=== PATIENT | male | born 1985 | race Caucasian/White ===

== ENCOUNTER 2020-04-16 09:04 | Outpatient (CLI) | payer BC, SELFPAY ==
--- NOTE | 2020-05-18 22:01 | WPDHOMESLEEP ---
Sleep Study - Home Unattended Date of Study: 04/16/20 Ordering Provider: Zion Mantilla MD Interpreting Physician: Blaire Allen MD Home Sleep Study Type: Watch PAT Height: 1.75 m Weight: 127.006 kg Body Mass Index: 41.3 [place]: 10 Reason for Sleep Study loud snoring with episodes of witnessed apnea Sleep History Roberto Carlos King is a 35 year old man who constantly snores and it is constantly loud enough that others complain about it. There is a family history of sleep issues with his father having similar problems. He does not awaken at night with heartburn, belching or coughing. He does not awaken from sleep feeling short of breath. He rarely has trouble sleeping with a cold and rarely wakes up gasping for breath at night. He constantly has breathing problems at night reported to him by others. He occasionally sweats excessively at night. He rarely notices his heart pounding or beating irregularly at night. He frequently falls asleep during the day, occasionally involuntarily. He rarely falls asleep while driving. He does not fall asleep while exerting physical effort. He does not have loss of muscle tone with strong emotion. 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 He does not feel paralyzed on waking or falling asleep. He occasionally has vivid dreamlike scenes upon awakening or falling asleep. He does not feel afraid to go to sleep. He does not have nightmares. He occasionally remembers his dreams. He does not have racing thoughts and does not have feelings of sadness or depression. He rarely has anxiety. He rarely feels muscular tension. He rarely notices parts of his body jerking. He does not kick at night, does not have crawling or aching feelings in his legs, does not have any kind of leg pain during the night. He does not have morning jaw pain. He denies grinding his teeth at night. He does not bothered by pain during the day and is not awakened by pain during the night. He occasionally wakes up feeling stiff in the morning, frequently with sore achy muscles and frequently with pain in the neck and spine. He has fatigue. he reports a 20 lb weight gain in the last year. He reports a 1 inch increase in his collar size in the last year. Normal bedtime is Between 11 and 12 midnight taking 10-15 minutes to fall asleep, waking once at most during the night. Some nights he does not wake at all. When he wakes he goes to urinate. He stays awake on average 5 minutes. He wakes in the morning at 8:00 a.m.. He normally gets between 7 and 8 hours of sleep at night. On the weekends he stays awake until midnight or 1:00 a.m. and wakes between 9 and 10:00 a.m.. He does not generally take naps. He may feel refreshed after a short 10 or 15 minutes nap. He is usually drowsy in the morning for 1 hour or longer. He feels better in the afternoon compared to other times of day. Habits: He quit tobacco per months ago. Caffeine 2 cups per day. No alcohol. [facility] Past Medical History Medical History Seasonal allergies Family History Family History Father Hypertension Grandparent Family history of type 2 diabetes mellitus Social History Social History Smoking status: Never smoker Alcohol intake: current Substance use: never Gender identity (if verbalized by the patient): Male Sleep Procedure The sleep study was completed using AsyscoT a technically adequate device with seven channels: peripheral arterial tone, actigraphy, body position, snore, respiratory movement, pulse oximetry, sleep staging, and heart rate. Prior to using the device, the patient received verbal and written instructions for its application and was provided with the help desk phone number for additional telephonic instruction wi
[2020-05-18 22:24] VITALS: BMI 41.3
== END 2020-04-16 09:05 | disposition home or self-care (01) ==
LOC: ANHCSM 09:06
PROVIDERS: PCP Family Medicine; Visit Provider Family Medicine
DX: G47.00 Insomnia, unspecified (principal); G47.33 Obstructive sleep apnea (adult) (pediatric); E66.9 Obesity, unspecified; Z68.41 Body mass index [BMI] 40.0-44.9, adult
CPT/HCPCS: 95800

== ENCOUNTER → 2020-07-02 00:27 | Outpatient (CLI) | payer BC, SELFPAY ==
[2020-07-02 19:29] LABS: SARS-CoV-2 RNA PCR Negative
== END ==
PROVIDERS: PCP Family Medicine; Visit Provider Internal Medicine Critical Care Medicine
DX: Z20.822 Contact with and (suspected) exposure to COVID-19 (principal)
CPT/HCPCS: C9803; U0003; U0005

== ENCOUNTER 2020-07-05 08:57 | Outpatient (CLI) | payer BC, SELFPAY ==
--- NOTE | 2020-07-20 17:45 | WPDSLEEPSTUD ---
Sleep Study Date of Study: 07/05/20 Ordering Provider: Zion Mantilla MD Interpreting Physician: Blaire Allen MD Sleep Study Type: CPAP Titration Height: 1.75 m Weight: 120.202 kg Body Mass Index: 39.1 Neck Circumference (inches): 18 [place]: 11 Reason for Sleep Study Home Sleep Test April 16 with moderate obstructive sleep apnea, AHI 24.1, minimum 74%, loud snoring worse in the prone position. No supine sleep. Central AHI 17. Patient now presents for CPAP titration. Sleep History Roberto Carlos King is a 35 year old man who constantly snores and it is constantly loud enough that others complain about it. There is a family history of sleep issues with his father having similar problems. He does not awaken at night with heartburn, belching or coughing. He does not awaken from sleep feeling short of breath. He rarely has trouble sleeping with a cold and rarely wakes up gasping for breath at night. He constantly has breathing problems at night reported to him by others. He occasionally sweats excessively at night. He rarely notices his heart pounding or beating irregularly at night. He frequently falls asleep during the day, occasionally involuntarily. He rarely falls asleep while driving. He does not fall asleep while exerting physical effort. He does not have loss of muscle tone with strong emotion. 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 He does not feel paralyzed on waking or falling asleep. He occasionally has vivid dreamlike scenes upon awakening or falling asleep. He does not feel afraid to go to sleep. He does not have nightmares. He occasionally remembers his dreams. He does not have racing thoughts and does not have feelings of sadness or depression. He rarely has anxiety. He rarely feels muscular tension. He rarely notices parts of his body jerking. He does not kick at night, does not have crawling or aching feelings in his legs, does not have any kind of leg pain during the night. He does not have morning jaw pain. He denies grinding his teeth at night. He does not bothered by pain during the day and is not awakened by pain during the night. He occasionally wakes up feeling stiff in the morning, frequently with sore achy muscles and frequently with pain in the neck and spine. He has fatigue. he reports a 20 lb weight gain in the last year. He reports a 1 inch increase in his collar size in the last year. Normal bedtime is Between 11 and 12 midnight taking 10-15 minutes to fall asleep, waking once at most during the night. Some nights he does not wake at all. When he wakes he goes to urinate. He stays awake on average 5 minutes. He wakes in the morning at 8:00 a.m.. He normally gets between 7 and 8 hours of sleep at night. On the weekends he stays awake until midnight or 1:00 a.m. and wakes between 9 and 10:00 a.m.. He does not generally take naps. He may feel refreshed after a short 10 or 15 minutes nap. He is usually drowsy in the morning for 1 hour or longer. He feels better in the afternoon compared to other times of day. Habits: He quit tobacco per months ago. Caffeine 2 cups per day. No alcohol. [facility] Past Medical History Medical History Seasonal allergies Family History Family History Father Hypertension Grandparent Family history of type 2 diabetes mellitus Social History Social History Smoking status: Never smoker Alcohol intake: current Substance use: never Gender identity (if verbalized by the patient): Male Medications Medications: none listed Sleep Procedure This test was performed using the viVood multiple channel system including EOG, EEG, submental EMG, EKG, nasal and oral airflow using thermistors and nasal pressure sensors, chest and a
[2020-07-23 08:43] VITALS: BMI 39.1
== END 2020-07-05 08:58 | disposition home or self-care (01) ==
LOC: ANHCSM 08:58
PROVIDERS: PCP Family Medicine; Visit Provider Family Medicine
DX: G47.31 Primary central sleep apnea (principal)
CPT/HCPCS: 95811

== ENCOUNTER 2020-08-13 07:35 | Outpatient (CLI) | payer BC, SELFPAY ==
--- NOTE | 2020-08-13 08:10 | ECHO_ITS ---
Patient Info Name: Roberto Carlos King Age: 35 years : 1985 Gender: Male Ht: 69 in Wt: 265 lbs BSA: 2.47 m2 HR: 62 bpm BP: 144 / 106 mmHg Technical Quality: Good Exam Date: 08/13/2020 8:18 AM Exam Location: [facility] Pulmonary Patient Status: Outpatient Admit Date: 08/13/2020 Staff Ordering Physician: Annabelle Dai NP Counter Stitcher: Wild Castro RDCS, RT Attending Provider: Annabelle Dai NP Referring Physician: Malaika TIERNEY; Exam Type: CA echo doppler color flow Study Info Indications Z13.6 - Encounter for screening for cardiovascular disorders Complete two-dimensional, color flow and Doppler transthoracic echocardiogram is performed. Strain analysis performed. Summary 1. Complete two-dimensional, color flow and Doppler transthoracic echocardiogram is performed. 2. Left ventricular chamber dimension is normal. 3. Left ventricular systolic function is normal, estimated at 60-65%. 4. The left ventricular diastolic function is normal. 5. E/e' 7 is not elevated. 6. Global longitudinal strain is normal at -18.1%. 7. There is trace pulmonic regurgitation. Left Ventricle E/e' 7 is not elevated. Global longitudinal strain is normal at -18.1%. Left ventricular chamber dimension is normal. Left ventricular systolic function is normal, estimated at 60-65%. The left ventricular diastolic function is normal. Right Ventricle Right ventricular systolic function is normal and with normal TAPSE 2.4 cm. Right ventricular chamber dimension is normal. Left Atria Left atrial chamber dimension is normal. Right Atria Right atrial chamber dimension is normal. Aortic Valve The aortic valve is trileaflet. There is no aortic valve stenosis. There is no aortic valve regurgitation. Pulmonic Valve There is trace pulmonic regurgitation. Mitral Valve There is no mitral valve stenosis. There is no mitral valve regurgitation. Tricuspid Valve There is no tricuspid valve regurgitation. Pericardium/Pleural There is no pericardial effusion. Inferior Vena Cava Normal inferior vena cava with >50% collapse upon inspiration consistent with normal right atrial pressure, 5 mmHg. Aorta The aortic root size at the sinus of Valsalva is normal. Left Ventricular Outflow Tract Name Value Normal LVOT 2D LVOT Diameter 2.1 cm LVOT Doppler LVOT Peak Gradient 5 mmHg LVOT Mean Gradient 3 mmHg LVOT VTI 23 cm LVOT VTI/AV VTI Ratio 0.9 LVOT Stroke Volume 82 ml LVOT CO 4.8 l/min LVOT CI 2.0 l/min/m2 Mitral Valve Name Value Normal MV Doppler MV Decel [place] 321 cm/s2 MV PHT
== END 2020-08-13 07:36 | disposition home or self-care (01) ==
PROVIDERS: PCP Family Medicine; Visit Provider Nurse Practitioner Family
DX: G47.33 Obstructive sleep apnea (adult) (pediatric) (principal); G47.31 Primary central sleep apnea
CPT/HCPCS: 93306

== ENCOUNTER 2023-10-29 21:59 | Emergency (ER) | payer BC, SELFPAY ==
[2023-10-29 22:58] VITALS: BP 141/80; PULSE 82; RESP 20; TEMP 36.6; O2SAT 99
[2023-10-30 02:40] VITALS: PULSE 69; RESP 18; TEMP 36.7; O2SAT 97
--- NOTE | 2023-10-30 03:52 | ED.GENADULT ---
HPI - General Adult General Chief complaint: Animal Bite Stated complaint: dog bite Time Seen by Provider: 10/30/23 03:03 History of Present Illness HPI narrative: Patient is a 38-year-old gentleman who presents emergency department with chief complaint of dog bite to the right upper extremity. 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 Nursing and ancillary documentation was reviewed. [facility] Past Medical History Medical History Dizziness of unknown cause Seasonal allergies Snoring Snoring Family History Family History Father Hypertension Grandparent Family history of type 2 diabetes mellitus Mother Skin cancer Social History Social History Smoking status: Former smoker Alcohol intake: current Drinks per week: 3 Alcohol use details: beer Substance use: never Do You Feel Safe in your Home?: Yes Lack of Transportation: No Lack of Food: Never True Current Housing: I Have Housing Concerned About Future Housing: No Difficulty Paying Gas/Electric Bills: No Difficulty Paying for Meds: No Currently Unemployed: No Education: Bachelor's Degree Difficulty w/ Childcare or Family Care: No Living arrangements: with family Occupation/Education: occupation Gender identity (if verbalized by the patient): Male Sexual Orientation (if Verbalized by the Patient): Straight or Heterosexual Spiritual care concerns: No Agree to blood products: Yes Exam Narrative: GENERAL: Well-appearing, well-nourished, and in no acute distress. HEAD: Normocephalic, atraumatic. EYES: PERRLA and EOMI. ENT: Nares clear, no rhinorrhea or epistaxis. Mucous membranes moist. NECK: Supple. CHEST: Clear to auscultation. No respiratory distress. HEART: Regular rate and rhythm. No murmur heard. Normal peripheral pulses. ABDOMEN: Soft, nontender, nondistended, normal active bowel sounds. EXTREMITIES: Normal range of motion. No edema. SKIN: Warm, dry, no rash. Several small puncture wounds present to the right forearm full range of motion no crepitance no large tissue defect NEURO: No focal deficits. Alert and oriented x3. PSYCH: Normal mood and affect. Course Vital Signs Vital signs: Vital Signs Temperature 36.6 C 10/29/23 22:58 Pulse Rate 82 10/29/23 22:58 Respiratory Rate 20 10/29/23 22:58 Blood Pressure 141/80 H 10/29/23 22:58 Pulse Oximetry 99 10/29/23 22:58 Oxygen Delivery Room Air 10/29/23 22:58 Temperature 36.7 C 10/30/23 02:40 Pulse Rate 69 10/30/23 02:40 Respiratory Rate 18 10/30/23 02:40 Blood Pressure 141/80 H 10/29/23 22:58 Pulse Oximetry 97 10/30/23 02:40 Oxygen Delivery Room Air 10/29/23 22:58 Medical Decision Making [facility] Narrative Medical decision making narrative: Differential diagnosis includes puncture wounds, laceration Patient's tetanus is up-to-date There is no large tissue defect requiring surgical repair Patient was started on Augmentin Vital Signs Vital Signs: Vital Signs Temperature 36.6 C 10/29/23 22:58 Pulse Rate 82 10/29/23 22:58 Respiratory Rate 20 10/29/23 22:58 Blood Pressure 141/80 H 10/29/23 22:58 Pulse Oximetry 99 10/29/23 22:58 Oxygen Delivery Room Air 10/29/23 22:
[2023-10-30] MEDS: AMOXICILLIN/CLAVULANATE K 875-125 MG TAB 1 TABLET PO (04:00)
== END 2023-10-30 04:05 | disposition home or self-care (01) ==
PROVIDERS: Emergency Provider Emergency Medicine; PCP Family Medicine
DX: S51.851A Open bite of right forearm, initial encounter (principal); Z87.891 Personal history of nicotine dependence; W55.21XA Bitten by cow, initial encounter
CPT/HCPCS: 99283; A9270